=== PATIENT | female | born 1990 | race Caucasian/White ===

== ENCOUNTER 2020-10-30 20:39 | Emergency (ER) | payer OTHER ==
[~2020-10-30] VITALS: Ht 165.1 cm; Wt 89.8 kg
[2020-10-30 20:46] VITALS: Ht 165.1 cm; Wt 89.8 kg
[2020-10-30 21:21] VITALS: BP 116/69
== END 2020-10-30 21:21 | disposition home or self-care (01) ==
LOC: ED 20:39
DX: B00.9 Herpesviral infection, unspecified (principal); B36.0 Pityriasis versicolor; F17.210 Nicotine dependence, cigarettes, uncomplicated; Z98.890 Other specified postprocedural states